=== PATIENT | male | born 1935 | race African-American/Black ===

== ENCOUNTER 2021-09-29 09:37 | Inpatient (IN) | payer MEDICARE, MEDICAID ==
[2021-09-29] MEDS ORDERED: Acetaminophen 325 MG Suppository ONE (09:46)
[2021-09-29 10:43] LABS: Bilirubin Neg (Negative); Blood, Urine 10 (Negative); Clarity Clear (Clear); Glucose, Urine (Dipstick) Normal (Negative); Ketone, Urine Negative (Negative); Leukocyte Negative (Negative); Nitrite Negative (Negative); Protein, Urine (Dipstick) 30 mg/dl (Neg-Trace); Specific Gravity, Urine 1.025 (1.002-1.036); Urobilinogen Normal mg/dL (Less than 2)
[2021-09-29 11:02] LABS: Platelet Count 153 10x3/uL (150-450)
[2021-09-29 11:03] LABS: #Eosinphils 0.1 10x3/uL (0.0-0.5); #Monocytes 0.7 10x3/uL (0.0-1.1); #Neutrophils 7.8 10x3/uL (1.5-8.4); %Basophils 0.3 % (0.0-2.0); %Eosinophils 0.6 % (0.0-6.0); %Lymphocytes 9.2 % (18.0-47.0); %Monocytes 7.2 % (0.0-10.0); %Neutrophils 82.2 % (40.0-75.0); Hemoglobin 11.7 g/dL (13.5-17.5); Mean Corpuscular HGB CONC 31.1 g/dL (32.0-36.0); Mean Corpuscular Hemoglobin 26.4 pg (27.0-33.0); Mean Corpuscular Volume 84.9 fl (81.2-95.1); Mean Platelet Volume 10.5 fl (7.4-10.4); RBC Distribution Width 13.5 % (11.5-14.5); Red Blood Cell (RBC) Count 4.43 10x6/uL (4.32-5.72); White Blood Cell (WBC) Count 9.7 10x3/uL (3.5-10.5)
[2021-09-29 11:06] LABS: Bacteria/HPF None Seen HPF (None Seen); RBC/HPF 0-3 HPF (0-3); SARS-CoV-2 NAA Rapid Test Not Detected (NotDetected); Squamous Epithelial None Seen HPF (0-3); WBC/HPF None Seen HPF (0-3)
[2021-09-29 11:09] LABS: ALT (SGPT) 37 U/L (8-55); AST (SGOT) 52 U/L (5-34); Albumin 2.8 g/dL (3.4-4.8); Alkaline Phosphatase 76 U/L (40-110); Anion Gap 14 mmol/L (10-20); BUN (Urea Nitrogen) 18 mg/dL (8.4-25.7); Bilirubin, Total 0.7 mg/dL (0.2-1.2); Calc. Creatinine Clearance 0 mL/min (70-130); Calcium 8.6 mg/dL (7.8-10.44); Carbon Dioxide 23 mmol/L (23-31); Chloride 108 mmol/L (98-107); Globulin 3.9 g/dL (2.4-3.5); Glucose 105 mg/dL (83-110); Potassium 4.4 mmol/L (3.5-5.1); Protein, Total 6.7 g/dL (5.8-8.1); Sodium 141 mmol/L (136-145)
[2021-09-29] MEDS ORDERED: Cefepime 2 GM VIAL ONE ×2 (13:05→13:07)
[2021-09-29] MEDS ORDERED: Acetaminophen 650 MG Suppository PR PRN (13:53)
[2021-09-29 14:47] LABS: Amphetamine Not Detected (NotDetected); Barbiturates Screen Not Detected (NotDetected); Benzodiazepine Screen Not Detected (NotDetected); Cocaine Metabolite Screen Not Detected (NotDetected); Methadone Not Detected (NotDetected); Methamphetamine Not Detected (NotDetected); Opiate Screen Detected (NotDetected); Oxycodone Screen Not Detected (NotDetected); Phencyclidine (PCP) Not Detected (NotDetected); THC/Cannabinoid Screen Not Detected (NotDetected); Tricyclic Screen Not Detected (NotDetected)
[2021-09-29 15:02] LABS: Acetaminophen Less than 6.0 mcg/mL (10.0-30.0); Alcohol Less than 10 mg/dL (Less than 10); Salicylate Less than 8.0 mg/dL (15.0-30.0)
[2021-09-29] MEDS ORDERED: Acetaminophen 500 MG TAB PO PRN (16:58)
[2021-09-29] MEDS ORDERED: Calcium Carbonate 500 MG ChewTAB PO PRN (17:00)
[2021-09-29] MEDS ORDERED: Ondansetron ODT 4 MG TAB PO PRN (17:00)
[2021-09-29] MEDS ORDERED: Ondansetron PF 4 MG/2 ML Vial IVP PRN (17:00)
[2021-09-29] MEDS ORDERED: Senokot S 8.6-50 MG TAB PO PRN (17:00)
[2021-09-29] MEDS: Cefepime 1 GM in Sodium Chloride 0.9% 100 ML IVPB SCH (21:28)
[2021-09-29] MEDS: Famotidine/PF 20 mg/2ml Vial SLOW IVP SCH (21:28)
[2021-09-29] MEDS: Famotidine 20 MG TAB PO SCH (21:29)
[2021-09-29] MEDS: Metoprolol Tartrate 50 MG TAB PO SCH (21:30)
[2021-09-30 04:40] LABS: Anion Gap 13 mmol/L (10-20); BUN (Urea Nitrogen) 17 mg/dL (8.4-25.7); Calc. Creatinine Clearance 73 mL/min (70-130); Calcium 8.1 mg/dL (7.8-10.44); Carbon Dioxide 23 mmol/L (23-31); Chloride 111 mmol/L (98-107); Glucose 104 mg/dL (83-110); Potassium 3.6 mmol/L (3.5-5.1); Sodium 143 mmol/L (136-145)
[2021-09-30 05:04] LABS: #Eosinphils 0.1 10x3/uL (0.0-0.5); #Monocytes 0.9 10x3/uL (0.0-1.1); #Neutrophils 9.9 10x3/uL (1.5-8.4); %Basophils 0.3 % (0.0-2.0); %Eosinophils 0.9 % (0.0-6.0); %Lymphocytes 6.6 % (18.0-47.0); %Monocytes 7.3 % (0.0-10.0); %Neutrophils 84.5 % (40.0-75.0); Hemoglobin 10.4 g/dL (13.5-17.5); Mean Corpuscular HGB CONC 30.3 g/dL (32.0-36.0); Mean Corpuscular Volume 85.8 fl (81.2-95.1); Mean Platelet Volume 9.7 fl (7.4-10.4); Platelet Count 191 10x3/uL (150-450); RBC Distribution Width 13.6 % (11.5-14.5); White Blood Cell (WBC) Count 11.7 10x3/uL (3.5-10.5)
[2021-09-30] MEDS: Vancomycin HCl 750 MG in Sodium Chloride 0.9% 250 ML 250 ML IVPB SCH (05:26)
[2021-09-30 06:55] VITALS: BMI 19.1
[2021-09-30] MEDS: Aspirin Chewable 81 MG TAB PO SCH (18:01)
[2021-09-30] MEDS: Atorvastatin Calcium 40 MG TAB PO SCH (18:02)
[2021-09-30] MEDS: Famotidine/PF 20 mg/2ml Vial SLOW IVP SCH ×2 (18:02→22:01)
[2021-09-30] MEDS: Famotidine 20 MG TAB PO SCH ×2 (18:02→22:28)
[2021-09-30] MEDS: Metoprolol Tartrate 50 MG TAB PO SCH ×2 (18:03→22:28)
[2021-09-30] MEDS: Polyethylene Glycol 3350 17 GM Packet PO SCH (18:03)
[2021-09-30] MEDS: Dextrose 5 %-0.45 % NaCl 1,000 ML IV SCH (18:03)
[2021-09-30] MEDS: Multivit, Therapeutic 1 TAB PO SCH (18:03)
[2021-09-30] MEDS: Cefepime 1 GM in Sodium Chloride 0.9% 100 ML IVPB SCH (18:18)
[2021-09-30] MEDS ORDERED: Metoprolol Tartrate 5 MG/5 ML VIAL IVP PRN (20:40)
[2021-10-01] MEDS: Vancomycin HCl 750 MG in Sodium Chloride 0.9% 250 ML 250 ML IVPB SCH (01:22)
[2021-10-01 04:32] LABS: Anion Gap 10 mmol/L (10-20); BUN (Urea Nitrogen) 15 mg/dL (8.4-25.7); Calc. Creatinine Clearance 76 mL/min (70-130); Calcium 8.1 mg/dL (7.8-10.44); Carbon Dioxide 25 mmol/L (23-31); Chloride 112 mmol/L (98-107); Glucose 98 mg/dL (83-110); Iron 15 ug/dL (65-175); Iron Binding Capacity, Total 123 mcg/dL (261-462); Potassium 3.3 mmol/L (3.5-5.1); Sodium 144 mmol/L (136-145)
[2021-10-01 04:33] LABS: #Eosinphils 0.3 10x3/uL (0.0-0.5); #Monocytes 0.8 10x3/uL (0.0-1.1); #Neutrophils 7.7 10x3/uL (1.5-8.4); %Basophils 0.4 % (0.0-2.0); %Eosinophils 2.6 % (0.0-6.0); %Lymphocytes 9.4 % (18.0-47.0); %Monocytes 8.2 % (0.0-10.0); Mean Corpuscular HGB CONC 30.1 g/dL (32.0-36.0); Mean Corpuscular Volume 86.2 fl (81.2-95.1); Mean Platelet Volume 9.6 fl (7.4-10.4); Platelet Count 209 10x3/uL (150-450); RBC Distribution Width 13.5 % (11.5-14.5); Red Blood Cell (RBC) Count 3.85 10x6/uL (4.32-5.72); White Blood Cell (WBC) Count 9.8 10x3/uL (3.5-10.5)
[2021-10-01] MEDS: Cefepime 1 GM in Sodium Chloride 0.9% 100 ML IVPB SCH (06:31)
[2021-10-01] MEDS: Aspirin Chewable 81 MG TAB PO SCH (10:04)
[2021-10-01] MEDS: Dextrose 5 %-0.45 % NaCl 1,000 ML IV SCH ×2 (10:04→22:14)
[2021-10-01] MEDS: Polyethylene Glycol 3350 17 GM Packet PO SCH (10:04)
[2021-10-01] MEDS: Multivit, Therapeutic 1 TAB PO SCH (10:04)
[2021-10-01] MEDS: Famotidine 20 MG TAB PO SCH ×2 (10:04→22:14)
[2021-10-01] MEDS: Metoprolol Tartrate 50 MG TAB PO SCH ×2 (10:04→22:15)
[2021-10-01] MEDS: Atorvastatin Calcium 40 MG TAB PO SCH (10:04)
[2021-10-01] MEDS: Famotidine/PF 20 mg/2ml Vial SLOW IVP SCH ×2 (10:05→22:15)
[2021-10-01] MEDS ORDERED: Potassium Chloride 20 MEQ TAB PO SCH (11:15)
[2021-10-01] MEDS ORDERED: Potassium Bicarbonate/Cit Ac 20 MEQ TAB PO SCH (17:30)
[2021-10-01] MEDS: cefTRIAXone\\ROCEPHIN 2 GM in Sodium Chloride 0.9% 100 ML IVPB SCH (17:42)
[2021-10-02 05:05] LABS: Anion Gap 12 mmol/L (10-20); BUN (Urea Nitrogen) 9 mg/dL (8.4-25.7); Calc. Creatinine Clearance 78 mL/min (70-130); Calcium 7.7 mg/dL (7.8-10.44); Carbon Dioxide 22 mmol/L (23-31); Chloride 112 mmol/L (98-107); Glucose 96 mg/dL (83-110); Potassium 3.1 mmol/L (3.5-5.1); Sodium 143 mmol/L (136-145)
[2021-10-02] MEDS ORDERED: Potassium Chloride 20 MEQ TAB PO SCH (07:30)
[2021-10-02] MEDS: Dextrose 5 %-0.45 % NaCl 1,000 ML IV SCH ×3 (12:03→14:48)
[2021-10-02] MEDS: Famotidine/PF 20 mg/2ml Vial SLOW IVP SCH ×2 (12:03→22:27)
[2021-10-02] MEDS: Cefepime 1 GM in Sodium Chloride 0.9% 100 ML IVPB SCH (12:06)
[2021-10-02] MEDS: Famotidine 20 MG TAB PO SCH ×2 (12:59→20:16)
[2021-10-02] MEDS: Metoprolol Tartrate 50 MG TAB PO SCH ×2 (13:00→20:16)
[2021-10-02] MEDS: Multivit, Therapeutic 1 TAB PO SCH (13:00)
[2021-10-02] MEDS: Polyethylene Glycol 3350 17 GM Packet PO SCH (13:00)
[2021-10-02] MEDS: Atorvastatin Calcium 40 MG TAB PO SCH (14:48)
[2021-10-02] MEDS: Aspirin Chewable 81 MG TAB PO SCH (14:48)
[2021-10-02] MEDS: cefTRIAXone\\ROCEPHIN 2 GM in Sodium Chloride 0.9% 100 ML IVPB SCH (16:36)
[2021-10-03 05:01] LABS: Anion Gap 11 mmol/L (10-20); BUN (Urea Nitrogen) 4 mg/dL (8.4-25.7); Calc. Creatinine Clearance 81 mL/min (70-130); Calcium 7.7 mg/dL (7.8-10.44); Carbon Dioxide 23 mmol/L (23-31); Chloride 110 mmol/L (98-107); Glucose 101 mg/dL (83-110); Potassium 3.2 mmol/L (3.5-5.1); Sodium 141 mmol/L (136-145)
[2021-10-03] MEDS ORDERED: Potassium Chloride 20 MEQ TAB PO SCH (08:00)
[2021-10-03] MEDS: Atorvastatin Calcium 40 MG TAB PO SCH (09:00)
[2021-10-03] MEDS: Aspirin Chewable 81 MG TAB PO SCH (09:00)
[2021-10-03] MEDS: Metoprolol Tartrate 50 MG TAB PO SCH ×2 (09:00→21:33)
[2021-10-03] MEDS: Famotidine 20 MG TAB PO SCH ×2 (09:00→21:33)
[2021-10-03] MEDS: Multivit, Therapeutic 1 TAB PO SCH (09:00)
[2021-10-03] MEDS: Polyethylene Glycol 3350 17 GM Packet PO SCH (09:01)
[2021-10-03] MEDS: Famotidine/PF 20 mg/2ml Vial SLOW IVP SCH ×2 (09:01→21:33)
[2021-10-03] MEDS: Dextrose 5 %-0.45 % NaCl 1,000 ML IV SCH (11:59)
[2021-10-03] MEDS: cefTRIAXone\\ROCEPHIN 2 GM in Sodium Chloride 0.9% 100 ML IVPB SCH (17:07)
[2021-10-04] MEDS: Dextrose 5 %-0.45 % NaCl 1,000 ML IV SCH (05:26)
[2021-10-04] MEDS: Aspirin Chewable 81 MG TAB PO SCH (09:30)
[2021-10-04] MEDS: Multivit, Therapeutic 1 TAB PO SCH (09:31)
[2021-10-04] MEDS: Metoprolol Tartrate 50 MG TAB PO SCH ×2 (09:31→21:25)
[2021-10-04] MEDS: Famotidine 20 MG TAB PO SCH ×2 (09:32→21:24)
[2021-10-04] MEDS: Atorvastatin Calcium 40 MG TAB PO SCH (09:32)
[2021-10-04] MEDS: Polyethylene Glycol 3350 17 GM Packet PO SCH (09:32)
[2021-10-04] MEDS: Famotidine/PF 20 mg/2ml Vial SLOW IVP SCH ×2 (09:32→21:23)
[2021-10-04] MEDS ORDERED: PROPOFOL 20 ML ONE (13:20)
[2021-10-04] MEDS: cefTRIAXone\\ROCEPHIN 2 GM in Sodium Chloride 0.9% 100 ML IVPB SCH (19:17)
[2021-10-04] MEDS: Acetaminophen 325 MG TAB PO PRN (21:24)
[2021-10-05] MEDS: Dextrose 5 %-0.45 % NaCl 1,000 ML IV SCH ×2 (00:28→21:57)
[2021-10-05 05:28] LABS: #Eosinphils 0.2 10x3/uL (0.0-0.5); #Monocytes 0.5 10x3/uL (0.0-1.1); #Neutrophils 4.4 10x3/uL (1.5-8.4); %Basophils 0.5 % (0.0-2.0); %Lymphocytes 18.5 % (18.0-47.0); %Monocytes 7.6 % (0.0-10.0); %Neutrophils 69.6 % (40.0-75.0); Hemoglobin 9.4 g/dL (13.5-17.5); Mean Corpuscular HGB CONC 31.2 g/dL (32.0-36.0); Mean Corpuscular Hemoglobin 26.1 pg (27.0-33.0); Mean Corpuscular Volume 83.6 fl (81.2-95.1); Mean Platelet Volume 9.3 fl (7.4-10.4); Platelet Count 248 10x3/uL (150-450); RBC Distribution Width 13.2 % (11.5-14.5); White Blood Cell (WBC) Count 6.3 10x3/uL (3.5-10.5)
[2021-10-05] MEDS ORDERED: Potassium Bicarbonate/Cit Ac 20 MEQ TAB PER TUBE SCH (08:00)
[2021-10-05] MEDS: Atorvastatin Calcium 40 MG TAB PO SCH (08:20)
[2021-10-05] MEDS: Multivit, Therapeutic 1 TAB PO SCH (08:20)
[2021-10-05] MEDS: Famotidine 20 MG TAB PO SCH ×2 (08:20→21:56)
[2021-10-05] MEDS: Aspirin Chewable 81 MG TAB PO SCH (08:20)
[2021-10-05] MEDS: Metoprolol Tartrate 50 MG TAB PO SCH ×2 (08:20→21:56)
[2021-10-05] MEDS: Famotidine/PF 20 mg/2ml Vial SLOW IVP SCH ×2 (08:21→21:58)
[2021-10-05] MEDS: Polyethylene Glycol 3350 17 GM Packet PO SCH (09:53)
[2021-10-05] MEDS: cefTRIAXone\\ROCEPHIN 2 GM in Sodium Chloride 0.9% 100 ML IVPB SCH (17:14)
[2021-10-05] MEDS ORDERED: Dextrose 5 %-0.45 % NaCl 1,000 ML ONE (21:33)
[2021-10-06] MEDS: Acetaminophen 325 MG TAB PO PRN (03:39)
[2021-10-06 09:05] LABS: #Eosinphils 0.2 10x3/uL (0.0-0.5); #Monocytes 0.6 10x3/uL (0.0-1.1); %Basophils 0.4 % (0.0-2.0); %Eosinophils 1.8 % (0.0-6.0); %Lymphocytes 19.5 % (18.0-47.0); %Monocytes 6.7 % (0.0-10.0); Hemoglobin 8.6 g/dL (13.5-17.5); Mean Corpuscular HGB CONC 30.9 g/dL (32.0-36.0); Mean Corpuscular Hemoglobin 25.9 pg (27.0-33.0); Mean Corpuscular Volume 83.7 fl (81.2-95.1); Mean Platelet Volume 9.2 fl (7.4-10.4); Platelet Count 235 10x3/uL (150-450); RBC Distribution Width 13.2 % (11.5-14.5); Red Blood Cell (RBC) Count 3.32 10x6/uL (4.32-5.72); White Blood Cell (WBC) Count 8.5 10x3/uL (3.5-10.5)
[2021-10-06 09:14] LABS: Anion Gap 10 mmol/L (10-20); BUN (Urea Nitrogen) 6 mg/dL (8.4-25.7); CRP (Inflammatory) 2.22 mg/dL (= or < 0.5); Calc. Creatinine Clearance 83 mL/min (70-130); Calcium 7.4 mg/dL (7.8-10.44); Carbon Dioxide 25 mmol/L (23-31); Chloride 103 mmol/L (98-107); Glucose 114 mg/dL (83-110); Potassium 3.4 mmol/L (3.5-5.1); Sodium 135 mmol/L (136-145)
[2021-10-06] MEDS: Famotidine 20 MG TAB PO SCH ×2 (10:08→21:48)
[2021-10-06] MEDS: Famotidine/PF 20 mg/2ml Vial SLOW IVP SCH ×2 (10:08→22:21)
[2021-10-06] MEDS: Polyethylene Glycol 3350 17 GM Packet PO SCH (10:08)
[2021-10-06] MEDS: Aspirin Chewable 81 MG TAB PO SCH (10:08)
[2021-10-06] MEDS: Metoprolol Tartrate 50 MG TAB PO SCH ×2 (10:08→21:48)
[2021-10-06] MEDS: Atorvastatin Calcium 40 MG TAB PO SCH (10:08)
[2021-10-06] MEDS: Multivit, Therapeutic 1 TAB PO SCH (10:08)
[2021-10-06] MEDS: cefTRIAXone\\ROCEPHIN 2 GM in Sodium Chloride 0.9% 100 ML IVPB SCH (17:46)
[2021-10-06] MEDS: Dextrose 5 %-0.45 % NaCl 1,000 ML IV SCH (17:46)
[2021-10-06 21:21] LABS: SARS-CoV-2 NAA Rapid Test Not Detected (NotDetected)
[2021-10-07 01:32] LABS: SARS-CoV-2 PCR by NAA Not Detected (NotDetected)
[2021-10-07] MEDS: Acetaminophen 325 MG TAB PO PRN (05:50)
[2021-10-07] MEDS: Atorvastatin Calcium 40 MG TAB PO SCH (09:11)
[2021-10-07] MEDS: Famotidine/PF 20 mg/2ml Vial SLOW IVP SCH ×2 (09:11→21:54)
[2021-10-07] MEDS: Famotidine 20 MG TAB PO SCH ×2 (09:11→21:54)
[2021-10-07] MEDS: Multivit, Therapeutic 1 TAB PO SCH (09:11)
[2021-10-07] MEDS: Metoprolol Tartrate 50 MG TAB PO SCH ×2 (09:11→21:54)
[2021-10-07] MEDS: Aspirin Chewable 81 MG TAB PO SCH (09:11)
[2021-10-07] MEDS: Polyethylene Glycol 3350 17 GM Packet PO SCH (09:11)
[2021-10-07] MEDS: Dextrose 5 %-0.45 % NaCl 1,000 ML IV SCH (18:29)
[2021-10-07] MEDS: cefTRIAXone\\ROCEPHIN 2 GM in Sodium Chloride 0.9% 100 ML IVPB SCH (18:33)
[2021-10-08] MEDS ORDERED: Dextrose 5 %-0.45 % NaCl 1,000 ML ONE (06:32)
[2021-10-08] MEDS: Dextrose 5 %-0.45 % NaCl 1,000 ML IV SCH (06:32)
[2021-10-08] MEDS: Aspirin Chewable 81 MG TAB PO SCH (08:50)
[2021-10-08] MEDS: Famotidine 20 MG TAB PO SCH (08:51)
[2021-10-08] MEDS: Multivit, Therapeutic 1 TAB PO SCH (08:51)
[2021-10-08] MEDS: Polyethylene Glycol 3350 17 GM Packet PO SCH (08:51)
[2021-10-08] MEDS: Metoprolol Tartrate 50 MG TAB PO SCH (08:51)
[2021-10-08] MEDS: Atorvastatin Calcium 40 MG TAB PO SCH (08:51)
[2021-10-08] MEDS: Famotidine/PF 20 mg/2ml Vial SLOW IVP SCH (08:51)
[2021-10-08 11:59] VITALS: BP 136/75; TEMP 98.2
== END 2021-10-08 13:43 | DRG 871 ==
LOC: CSHERS 09:37 → CSHTELE 16:19
PROVIDERS: ADMIT Family Medicine; ATTEND Family Medicine
PROC: 0DB68ZX Excision of Stomach, Via Natural or Artificial Opening Endoscopic, Diagnostic (ICD-10-PCS; principal; 2021-10-04)
PROC: 0DH63UZ Insertion of Feeding Device into Stomach, Percutaneous Approach (ICD-10-PCS; 2021-10-04)
DX: A41.9 Sepsis, unspecified organism (principal); G93.41 Metabolic encephalopathy; J69.0 Pneumonitis due to inhalation of food and vomit; I69.354 Hemiplegia and hemiparesis following cerebral infarction affecting left non-dominant side; R64 Cachexia; Z68.1 Body mass index [BMI] 19.9 or less, adult; E46 Unspecified protein-calorie malnutrition; F03.90 Unspecified dementia, unspecified severity, without behavioral disturbance, psychotic disturbance, mood disturbance, and anxiety; I48.0 Paroxysmal atrial fibrillation; I10 Essential (primary) hypertension; F41.9 Anxiety disorder, unspecified; F32.A Depression, unspecified; M16.10 Unilateral primary osteoarthritis, unspecified hip; M17.10 Unilateral primary osteoarthritis, unspecified knee; Z20.822 Contact with and (suspected) exposure to COVID-19; R13.12 Dysphagia, oropharyngeal phase; I69.320 Aphasia following cerebral infarction; Z79.899 Other long term (current) drug therapy; Z79.82 Long term (current) use of aspirin
CPT/HCPCS: 0240U; 36415; 36416; 51701; 71045; 71275; 80048; 80053; 80306; 80307; 81003; 81015; 82140; 82728; 83540; 83550; 83605; 83735; 84145; 84443; 85025; 86140; 87040; 87086; 88305; 88312; 96365; 96366; 96367; B4087; J0692; J0696; J2405; J2704; J3370; J3490; J7042; J7050; S0028; U0003; U0005